=== PATIENT | male | born 1950 ===

== ENCOUNTER 2020-10-05 10:48 | Day surgery (SDC) | payer MEDICARE ==
[2020-10-05] VITALS (10 sets, daily range): BP systolic 117–144; BP diastolic 67–89; PULSE 58–79; TEMP 98.1–98.8
[~2020-10-05] VITALS: Ht 182.9 cm; Wt 117.3 kg
[2020-10-05] MEDS ORDERED: COUMADIN 5MG5 MG/TAB PO ×2 (11:38→11:39)
[2020-10-05] MEDS ORDERED: LOTENSIN20 MG PO (11:39)
[2020-10-05] MEDS ORDERED: NORVASC 5MG5 MG/TAB PO (11:40)
[2020-10-05] MEDS ORDERED: PROSCAR 5MG5 MG PO (11:41)
[2020-10-05] MEDS ORDERED: LIPITOR20 MG PO (11:41)
[2020-10-05] MEDS ORDERED: RAPAFLO8 MG PO (11:42)
[2020-10-05] MEDS ORDERED: K-DUR 10 MEQ T10 MEQ PO (11:42)
[2020-10-05] MEDS ORDERED: VOLTAREN GEL 1%1 TU TP (11:43)
[2020-10-06 03:00] VITALS: BP 150/81; PULSE 62; TEMP 97.9
[2020-10-06 08:00] VITALS: BP 132/79; PULSE 73; TEMP 98.2
--- NOTE | 2020-10-06 08:30 | NUR ---
PATIENT ALERT AND ORIENTED SITTING IN BED. PATIENT ON CBI. URINE OUTPUT IS CLEAR AND RED. PATIENT STATES IT IS LOOKING BETTER THAN LAST NIGHT. PATIENT HAS IV TO THE LEFT HAND. PATIENT IS NPO AND DOCTOR WILL BE CALLED AT NOON FOR FURTHER CARE PLAN INSTRUCTIONS. PATIENT DENIES PAIN OR FURTHER NEEDS AT THIS TIME. CALL LIGHT WITHIN REACH. HEAD TO TOE ASSESSMENT COMPETE.
--- NOTE | 2020-10-06 09:30 | NUR ---
PATIENT HELPED TO SHOWER BY AID AND CATHETER CARE PROVIDED.
--- NOTE | 2020-10-06 11:48 | NUR ---
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 Patient lives in [place], at home with ([employer] [phone]), Patient reports he is fully independent and uses no devices to assist at home. Patient's PCP is Dr. Rocha and uses [facility] in [place] for perscriptions. Patient states he has a DPOA-HC established but it is at home. Plans to return home with . *Discharge plan: Home*
[2020-10-06 12:00] VITALS: BP 136/76; PULSE 68; TEMP 98.2
--- NOTE | 2020-10-06 12:49 | NUR ---
AGREE WITH EMMANUEL'S ASSESSMENTS THIS SHIFT. URINE CONTINUES TO BE MILAN. CBI IS RUNNING AT A HIGH RATE.
--- NOTE | 2020-10-06 13:07 | NUR ---
Initial visit; Patient thanked Special Procedures Tech for looking in on him and offering God's blessings.
[2020-10-06 15:14] VITALS: BP 112/64; PULSE 63; TEMP 98.9
[2020-10-06 19:27] VITALS: BP 115/63; PULSE 61; TEMP 98.4
--- NOTE | 2020-10-06 20:49 | NUR ---
PT RESTING COMFORTABLY IN BED. EVENING MEDICATIONS GIVEN. CBI RUNNING, URING IS A PINK COLOR. URETHRA HAS MILD BLEEDING. TOPICAL OINTMENT APPLIED TO THE TIP OF THE PENIS. PT DECLINES ANY NEEDS AT THIS TIME. CALL LIGHT NITIN LARSEN. WILL CONTINUE TO MONITOR.
[2020-10-06 23:53] VITALS: BP 118/73; PULSE 67; TEMP 98.4
[2020-10-07] VITALS (14 sets, daily range): BP systolic 96–144; BP diastolic 44–83; PULSE 54–67; TEMP 97–98.4
--- NOTE | 2020-10-07 06:15 | NUR ---
PT HAD A RESTFUL NIGHT. CBI RUNNING WITH RED OUTPUT. PT DENIES ANY NEEDS AT THIS TIME. WILL CONTINUE TO MONITOR.
[2020-10-07 06:28] LABS: HEMATOCRIT 37.2 % (42.0-52.0)
--- NOTE | 2020-10-07 11:39 | NUR ---
Díaz catheter removed at 0925 per Drs order. Six bottle routine initiated.
--- NOTE | 2020-10-07 21:18 | NUR ---
PT RESTING IN BED. ASSESSMENT COMPLETED AFTER RETURN FROM PROCEDURE. PT DENIES ANY PAIN OR DISCOMFORT. EVENING MEDICATIONS GIVEN. NS RUNNING THROUGH IV. CBI RUNNING WITH URINE A PINK COLOR WITH NO CLOTS OR SEDIMENT NOTED. CALL LIGHT WITHIN REACH. WILL CONTINUE TO MONITOR.
[2020-10-08 05:00] VITALS: BP 120/73; PULSE 63
[2020-10-08 07:14] VITALS: BP 126/73; PULSE 67; TEMP 97.7
--- NOTE | 2020-10-08 08:03 | NUR ---
Patient awake this am. Tolerated breakfast. Denies nausea. Díaz to DD with red tinged output. Some sediment & few clots noted. CBI is to a very slow drip. Iv to Int. Dr.Evangelidids fritz, plan of care reviewed.
[2020-10-08 11:09] VITALS: BP 100/53; PULSE 62; TEMP 98.3
--- NOTE | 2020-10-08 13:18 | NUR ---
Patient ready for discharge. Completed 6 bottle routine. pink tinged output. No troubles. He tolerated lunch. Int Dc. Patient showered. All discharge paperwork reviewed. home med list reviewed with last dose taken, patient aware to hold coumadin until ordered to resume. office to call for follow up appt. patient and his deny questions or concerns . Patietn ambulated out with all belongings.
== END 2020-10-08 13:28 | disposition home or self-care (01) ==
LOC: SURG 10:48 → SDCO 10:48 → SURG 15:30 → SDCO 10-07 15:30
PROVIDERS: Urology
DX: N40.1 Benign prostatic hyperplasia with lower urinary tract symptoms (principal); N13.8 Other obstructive and reflux uropathy; R31.0 Gross hematuria; R39.12 Poor urinary stream; N32.89 Other specified disorders of bladder; I10 Essential (primary) hypertension; I48.91 Unspecified atrial fibrillation; E78.00 Pure hypercholesterolemia, unspecified; G47.33 Obstructive sleep apnea (adult) (pediatric); J30.9 Allergic rhinitis, unspecified; M19.90 Unspecified osteoarthritis, unspecified site; Z79.01 Long term (current) use of anticoagulants; Z79.899 Other long term (current) drug therapy; Z99.89 Dependence on other enabling machines and devices
CPT/HCPCS: OP; J0690; J2250; J2405; J2704; J3010; J3480; J7030; J7120